=== PATIENT | female | born 1955 | race Caucasian/White ===

== ENCOUNTER 2016-08-07 10:04 | Emergency (ER) | payer BC ==
[~2016-08-07] VITALS: Ht 160 cm; Wt 62.3 kg
[~2016-08-07 10:04] MED LIST: ALLE60TA PO; ANUC25SU RECTAL; ASCO500C PO; CALC600T25 PO; CLIN1GEL TOPICAL; COLA100C3 PO; COQ1100C PO; FLUT1SPR5 EACH NARE; LACTCAP8 PO; LEVS0.124 SL; MULT1TAB96 PO; PERC5TAB12 PO; VITA2000 PO; XARE20TA PO; XELO500T PO; ZOFR4TAB PO; [UNRECOGNIZED DRUG - OTHER] PO; [UNRECOGNIZED DRUG - OTHER] PO; [UNRECOGNIZED DRUG - OTHER] PO
[2016-08-07 10:06] VITALS: BP 103/73; PULSE 116; RESP 16; TEMP 98.6; O2SAT 98
--- NOTE | 2016-08-07 10:15 | PD ---
HPI Chief Complaint: GI Complaint Time Seen by Provider: 10:15 Travel History International Travel<30 days: No Contact w/Intl Traveler<30days: No Traveled to known affect area: No History of Present Illness HPI 60-year-old female came to the emergency room with history of intractable diarrhea since past 3 days. Patient has history of colon cancer that has metastasized to her liver. She has had radiation treatment and currently on daily oral chemotherapy. Her oncologist is from [facility]. She slowly started to get diarrhea which is progressively worsening over past 3 days. She says she has been unable to stay out of the bathroom. She has taken Imodium which does not seem to be helping. There is no pain per se and she's not been vomiting. But she is unable to eat or drink anything since it comes right out. Stool is watery and nonbloody. In fact when I went to see her she was in the toilet for past 10-15 minutes before I got to see her because she was having a bowel movement. Her is here with her as well. Patient was tachycardic in triage. She looks tired and in distress. [facility] Past Medical History Narrative Medical List of her past medical, surgical, social and family history was reviewed from the nursing note. Hx Anticoagulant Therapy: Yes (XARELTO) Cancer: Yes (colon and liver) Cardiovascular Problems: No Chemotherapy: Yes (LAST THURSDAY) Diabetes: No Deep Vein Thrombosis: Yes (left leg on xarelto) Endocrine: No Genitourinary: No Hepatitis: No Hiatal Hernia: No Immune Disorder: No Musculoskeletal: No Neurologic: No Psychiatric: No Reproductive: No Respiratory: No Immunizations Current: Yes Radiation Therapy: Yes (targeted radiation) Thyroid Disease: No ?: Not Past Surgical History Abdominal Surgery: No AICD: No Cardiac Surgery: No Ear Surgery: No Endocrine Surgery: No Eye Surgery: No Genitourinary Surgery: No Gynecologic Surgery: No Joint Replacement: No Oral Surgery: No Pacemaker: No Other Surgery: Yes (cancerous polyp removed from anus) Social History Alcohol Use: No Tobacco Use: No Substance Use: No Allergies-Medications (Allergen,Severity, Reaction): Coded Allergies: No Known Allergies (Verified , 08/07/16) Comments No known drug allergies. Reported Meds & Prescriptions Reported Meds & Active Scripts Active Lomotil (Diphenoxylate-Atropine) 2.5-0.025 Mg Tab 1 Tab PO Q6H PRN Reported Pantoprazole (Pantoprazole Sodium) 40 Mg Tab 40 Mg PO DAILY l-Carnitine (Amino Acids) 1 Liq Liq 3,000 Mg PO BID Celexa (Citalopram Hydrobromide) 10 Mg Tab 10 Mg PO DAILY Ativan (Lorazepam) 1 Mg Tab 1 Mg PO DIRECTED PRN Percocet (Oxycodone-Acetaminophen) 5-325 mg Tab 1 Tab PO Q4-6H PRN Colace (Docusate Sodium) 100 Mg Cap 100 Mg PO BID PRN Coq10 (Coenzyme Q10 (Ubidecarenone)) 100 Mg Cap 100 Mg PO DAILY Zofran (Ondansetron HCl) 4 Mg Tab 4 Mg PO Q8HR PRN Anucort-Hc (Hydrocortisone Acetate (Rectal) 25 Mg Sup 1 Supp RECTAL BID PRN Clindagel Topical (Clindamycin Phosphate) 1% Gel 1 Applic TOPICAL DAILY Xarelto (Rivaroxaban) 20 Mg Tab 20 Mg PO DAILY Flonase Nasal [place] (Fluticasone Nasal [place]) 50 Mcg/Act [place] 50 Mcg EACH NARE DAILY Bertha Allergy (Fexofenadine HCl) 60 Mg Tab 60 Mg PO BID Multivitamin Women 50+ (Multiple Vitamins W/ Minerals) 1 Tab Tab 1 Tab PO DAILY Calcium (Calcium Carbonate) 600 Mg Tab 600 Mg PO DAILY Vitamin C (Ascorbic Acid) 500 Mg Cap 500 Mg PO DAILY Xeloda (Capecitabine) 500 Mg Tab 1,500 Mg PO DIRECTED Cytotoxic agent. Swallow whole with water 30 minutes after a meal. Do not cut or crush. [GI repair Powder] 5 Ml PO BID Vitamin D3 (Cholecalciferol) 2,000 Unit Cap 2,000 Units PO DAILY [ferrasorb] 1 Cap PO BID Probiotic (Lactobacillus Acidophilus) 1 Cap Cap 1 Cap PO DAILY [similase (ITI)] 2 Cap PO TIDAC Levsin-SL (Hyoscyamine Sulfate) 0.125 Mg Subl 0.125 Mg SL TID Narrative Medication List of her home medications reviewed from the nursing note. Review of Systems Except as stated in HPI: all other systems reviewed are Neg Physical Exam Narrative GENERAL: Awake, alert, moderate distress SKIN: Focused skin assessment warm/dry. HEAD: Atraumatic. Normocephalic. EYES: Pupils equal and round. No scleral icterus. No injection or drainage. ENT: No nasal bleeding or discharge. Dry mucous membrane. NECK: Trachea midline. No JVD. CARDIOVASCULAR: Regular rate and rhythm. No murmur appreciated. RESPIRATORY: No accessory muscle use. Clear to auscultation. Breath sounds equal bilaterally. GASTROINTESTINAL: Abdomen soft, non-tender, nondistended. Hepatic and splenic margins not palpable. MUSCULOSKELETAL: No obvious deformities. No clubbing. No cyanosis. No edema. NEUROLOGICAL: Awake and alert. No obvious cranial nerve deficits. Motor grossly within normal limits. Normal speech. PSYCHIATRIC: Appropriate mood and affect; insight and judgment normal. Data Data Last Documented VS Vital Signs Date Time Temp Pulse Resp B/P Pulse Ox O2 Delivery O2 Flow Rate FiO2 08/07/16 14:53 115 14 120/72 100 Room Air 08/07/16 10:06 98.6 Orders Complete Blood Count With Diff (08/07/16 10:48) Comprehensive Metabolic Panel (08/07/16 10:48) Urinalysis - C+S If Indicated (08/07/16 10:48) Iv Access Insert/Monitor (08/07/16 10:48) Ecg Monitoring (08/07/16 10:48) Oximetry (08/07/16 10:48) Sodium Chlor 0.9% 1000 Ml Inj (Ns 1000 M (08/07/16 10:48) Sodium Chloride 0.9% Flush (Ns Flush) (08/07/16 11:00) C Diff Toxin Pcr (08/07/16 10:48) Sodium Chlor 0.9% 1000 Ml Inj (Ns 1000 M (08/07/16 11:00) Urine Culture (08/07/16 11:00) Potassium Chlor 20 Meq Premix (Kcl 20 Me (08/07/16 12:00) Potassium Chloride (Kcl) (08/07/16 12:00) Diphenoxylate/Atropine Tab (Lomotil Tab) (08/07/16 12:30) Diphenoxylate/Atropine Tab (Lomotil Tab) (08/07/16 14:15) Labs Laboratory Tests Test 08/07/16 08/07/16 11:00 11:20 White Blood Count 2.8 TH/MM3 Red Blood Count 3.28 MIL/MM3 Hemoglobin 11.2 GM/DL Hematocrit 34.5 % Mean Corpuscular Volume 105.2 FL Mean Corpuscular Hemoglobin 34.1 PG Mean Corpuscular Hemoglobin 32.4 % Concent Red Cell Distribution Width 24.5 % Platelet Count 187 TH/MM3 Mean Platelet Volume 6.7 FL Neutrophils (%) (Auto) % Lymphocytes (%) (Auto) % Monocytes (%) (Auto) % Eosinophils (%) (Auto) % Basophils (%) (Auto) % Neutrophils # (Auto) TH/MM3 Lymphocytes # (Auto) TH/MM3 Monocytes # (Auto) TH/MM3 Eosinophils # (Auto) TH/MM3 Basophils # (Auto) TH/MM3 CBC Comment AUTO DIFF Differential Total Cells 100 Counted Neutrophils % (Manual) 54 % Lymphocytes % 26 % Monocytes % 17 % Eosinophils % 3 % Neutrophils # (Manual) 1.5 TH/MM3 Differential Comment FINAL DIFF MANUAL Platelet Estimate NORMAL Platelet Morphology Comment NORMAL Hematology Comments Urine Collection Type CLEAN CATCH Urine Color YELLOW Urine Turbidity CLEAR Urine pH 6.0 Urine Specific [place] 1.032 Urine Protein 30 mg/dL Urine Glucose (UA) NEG mg/dL Urine Ketones NEG mg/dL Urine Occult Blood NEG Urine Nitrite NEG Urine Bilirubin NEG Urine Leukocyte Esterase TRACE Urine RBC 0-3 /hpf Urine WBC 3-5 /hpf Urine Squamous Epithelial 0-5 /hpf Cells Urine Bacteria MOD /hpf Microscopic Urinalysis Comment CULTURE INDICATED Urine Collection Time 11:00 Sodium Level 143 MEQ/L Potassium Level 3.0 MEQ/L Chloride Level 110 MEQ/L Carbon Dioxide Level 21.0 MEQ/L Anion Gap 12 MEQ/L Blood Urea Nitrogen 22 MG/DL Creatinine 0.85 MG/DL Estimat Glomerular Filtration 68 ML/MIN Rate Random Glucose 104 MG/DL Calcium Level 8.7 MG/DL Total Bilirubin 0.9 MG/DL Aspartate Amino Transf 18 U/L (AST/SGOT) Alanine Aminotransferase 17 U/L (ALT/SGPT) Alkaline Phosphatase 87 U/L Total Protein 5.7 GM/DL Albumin 2.6 GM/DL Stool C. difficile Toxin (PCR) NEGATIVE Stl C. difficile Toxin PRESUMPTIVE Epiderm 027 NEGATIVE MDM Medical Decision Making Medical Screen Exam Complete: Yes Emergency Medical Condition: Yes Medical Record Reviewed: Yes Differential Diagnosis Intractable diarrhea, radiation colitis, C. difficile colitis, dehydration Narrative Course 12:15 PM awaiting for the C. difficile report to be resulted. Blood test results are back. Patient's white cell count is low but she is not neutropenic. I'm expecting that from her chemotherapy. Potassium was low and I have replaced it in the form of by mouth as well as IV. I will start her on Lomotil assist point since the C. difficile might take a while. Patient has already gone twice to the bathroom with bowel movement. 2:09 PM patient says that she had another bowel movement since the Lomotil but seems like the quantity is much less than before. Patient has received 2 L of IV fluid bolus and potassium replacement at this point. She is comfortable going home. I'll give her 1 more dose of Lomotil and a prescription to go home with. I have asked her to call her oncologist. She will go home with copies of her blood test results. Procedures EKG Prior to Arrival: No Diagnosis Primary Impression: Intractable diarrhea Additional Impressions: Rectal cancer Dehydration Referrals: Primary Care Physician 2 days Additional Instructions: Please return to the ER if the condition worsens or any other new concerns. Otherwise follow-up with your primary care and your oncologist as soon as possible. Take the medication as per the prescription direction. Drink lots of fluid. Med/Other Pt SpecificInfo: Prescription(s) given Scripts Diphenoxylate-Atropine (Lomotil)2.5-0.025 Mg Tab1 Tab PO Q6H PRN (DIARRHEA) #30 TAB Ref 0 Prov:Annel Chaudhary MD 08/07/16 Disposition: 01 DISCHARGE HOME Condition: Stable Annel Chaudhary MD Aug 07, 2016 10:15
[2016-08-07] MEDS ORDERED: [UNRECOGNIZED DRUG - CODE] PO (10:43)
[2016-08-07] MEDS ORDERED: LORA-474 PO (10:43)
[2016-08-07] MEDS ORDERED: CELE10TA PO (10:43)
[2016-08-07] MEDS ORDERED: PANT40TA3 PO (10:43)
[2016-08-07] MEDS ORDERED: LACTCAP8 PO (10:43)
[2016-08-07] MEDS ORDERED: SODIUM CHLOR 0.9% 1000 ML INJ 1,000 ML IV SCH (10:48)
[2016-08-07] MEDS ORDERED: SODIUM CHLORIDE 0.9% FLUSH 10 ML FLUSH IV FLUSH PRN (11:00)
[2016-08-07] MEDS ORDERED: SODIUM CHLOR 0.9% 1000 ML INJ 1,000 ML IV ONE (11:00)
[2016-08-07 11:02] VITALS: O2SAT 100
[2016-08-07 11:07] LABS: BLOOD, URINE NEG (NEG); GLUCOSE,URINE NEG (NEG); KETONE, URINE NEG (NEG); NITRITE,URINE NEG (NEG)
[2016-08-07 11:09] LABS: HEMATOCRIT 34.5 % (35.0-46.0); MEAN CELL VOLUME 105.2 FL (80.0-100.0); MEAN CORPUSCULAR HEMOGLOBIN 34.1 PG (27.0-34.0); MEAN CORPUSCULAR HGB CONC 32.4 % (32.0-36.0); PLATELET COUNT 187 TH/MM3 (150-450); RED BLOOD COUNT 3.28 MIL/MM3 (4.00-5.30); RED CELL DISTRIBUTION WIDTH 24.5 % (11.6-17.2); WHITE BLOOD COUNT 2.8 TH/MM3 (4.0-11.0)
[2016-08-07 11:18] LABS: BACTERIA, URINE MOD /hpf; METHOD OF COLLECTION CLEAN CATCH; RBC, URINE 0-3 /hpf (0-3); SQUAMOUS EPITHELIAL CELL URINE 0-5 /hpf (0-5); URINE COLOR YELLOW (YELLW/STRAW)
[2016-08-07 11:19] LABS: CHLORIDE 110 MEQ/L (98-107); COMMENT (UR) CULTURE INDICATED; CULTURE IF INDICATED CULTURE INDICATED; SODIUM (NA) 143 MEQ/L (136-145)
[2016-08-07 11:22] LABS: ANION GAP 12 MEQ/L (5-15)
[2016-08-07 11:23] LABS: BLOOD UREA NITROGEN 22 MG/DL (7-18)
[2016-08-07 11:24] LABS: HEMATOLOGY STUDY COMMENT ND; HEMO FLAGS AUTO DIFF
[2016-08-07 11:26] LABS: ALT (GPT) 17 U/L (10-53); AST (GOT) 18 U/L (15-37); GLOMERULAR FILTRATION RATE 68 ML/MIN (>89)
[2016-08-07 11:27] LABS: TOTAL BILIRUBIN ADULT 0.9 MG/DL (0.2-1.0)
[2016-08-07 11:28] LABS: ALKALINE PHOSPHATASE 87 U/L (45-117)
[2016-08-07 11:44] LABS: EOSINOPHILS 3 % (0-4); NEUTROPHIL # MANUAL DIFF 1.5 TH/MM3 (1.8-7.7); POLYS (SEG NEUTROPHILS) 54 % (16-70); WBC DIFF SAMPLE 100
[2016-08-07 11:45] LABS: PLATELET ESTIMATE SMEAR NORMAL (NORMAL); PLATELET MORPHOLOGY NORMAL (NORMAL); SCAN/DIFF FINAL DIFF MANUAL
[2016-08-07] MEDS ORDERED: POTASSIUM CHLORIDE 20 MEQ CONTROLLED RELEASE TAB PO ONE (12:00)
[2016-08-07] MEDS ORDERED: POTASSIUM CHLOR 20 MEQ PREMIX 100 ML IV ONE (12:00)
[2016-08-07] MEDS ORDERED: DIPHENOXYLATE/ATROPINE 2.5 MG/0.025 MG TAB PO ONE ×2 (12:30→14:15)
[2016-08-07 12:53] VITALS: BP 103/70; PULSE 109; RESP 14; O2SAT 100
[2016-08-07] MEDS ORDERED: LOMO2.5T PO (14:12)
[2016-08-07 14:53] VITALS: BP 120/72; PULSE 115; RESP 14; O2SAT 100
[2016-08-07 15:07] LABS: C. DIFF EPI 027 PRESUMPTIVE NEGATIVE (NEGATIVE); C. DIFF TOXIN PCR NEGATIVE (NEGATIVE)
== END 2016-08-07 15:15 | disposition home or self-care (01) ==
LOC: PHED 10:04
DX: R19.7 Diarrhea, unspecified (principal); C20 Malignant neoplasm of rectum; C78.7 Secondary malignant neoplasm of liver and intrahepatic bile duct; E86.0 Dehydration; R00.0 Tachycardia, unspecified; Z79.01 Long term (current) use of anticoagulants; Z85.038 Personal history of other malignant neoplasm of large intestine; Z86.718 Personal history of other venous thrombosis and embolism
CPT/HCPCS: 80053; 81001; 85007; 85027; 87086; 87493; 96361; 96365; 96366; 99284; J3480; J7030

== ENCOUNTER 2017-03-17 11:15 | Observation (INO) | payer BC ==
[~2017-03-17] VITALS: Ht 154.9 cm; Wt 73.7 kg
[2017-03-17] VITALS (7 sets, daily range): BP systolic 100–121; BP diastolic 66–81; PULSE 75–96; RESP 15–20; TEMP 96.6–98.1; O2SAT 95–100
[~2017-03-17 11:15] MED LIST changes: -CALC600T25 PO; +CALC600T5 PO; +CELE10TA PO; +LOMO2.5T PO; +LORA-474 PO; +PANT40TA3 PO; +[UNRECOGNIZED DRUG - CODE] PO
[2017-03-17] MEDS ORDERED: SODIUM CHLOR 0.9% 1000 ML INJ 1,000 ML IV SCH (11:42)
[2017-03-17] MEDS ORDERED: SODIUM CHLORIDE 0.9% FLUSH 10 ML FLUSH IV FLUSH PRN ×4 (11:45→20:15)
--- NOTE | 2017-03-17 11:50 | PD ---
HPI Chief Complaint: Bleeding Time Seen by Provider: 11:30 Travel History International Travel<30 days: No Contact w/Intl Traveler<30days: No Traveled to known affect area: No History of Present Illness HPI Patient is a 61-year-old female with history of liver and colon cancer as well as rectal cancer, presents to emergency room for lab work. Patient is currently being seen by Dr. Clayton in [place] at the cancer center. She is currently been receiving chemotherapy, reports that her last chemotherapy treatment was on . Patient reports that she has had radiation as well as chemotherapy, reports that she has residual tumors in her liver as well as her rectum. She reports that she is currently being seen by GI and reports that every day, she does have blood in her stools and this is secondary to her rectal cancer. Patient reports that she was concerned as she had 2 bowel movements this morning which had a mix of dark and bright red blood. Patient reports that during her bowel movements, she did have an episode of epistasis. Reports that she also had an episode of epistasis last night which lasted for about an hour. Patient reports that she currently is on Xarelto as she has history of DVT, patient concerned for her hemoglobin level as well as her platelet level. Patient reports that with her chemotherapy and radiation, her platelet counts have been low, last week or platelet counts was 87. Patient reports no abdominal pain, no nausea or vomiting, no weakness or dizziness. She was told to come to the emergency room for lab work and to check on her hemoglobin specifically. Patient with no epistasis at this time, reports that overall, she does feel well. Patient's pipe fitter supervisor maintenance is in [place] Dr. Precious Orosco diagnosed her cancer initially [facility] Past Medical History Hx Anticoagulant Therapy: Yes (XARELTO) Depression: Yes Cancer: Yes (colon and liver) Cardiovascular Problems: No Chemotherapy: Yes (LAST THURSDAY) Diabetes: No Diminished Hearing: No Deep Vein Thrombosis: Yes (left leg on xarelto) Endocrine: No Gastrointestinal Disorders: Yes (IBS, HEMROIDS) GERD: Yes Genitourinary: No Hepatitis: No Hiatal Hernia: No Immune Disorder: No Musculoskeletal: No Neurologic: No Psychiatric: No Reproductive: No Respiratory: No Immunizations Current: Yes Radiation Therapy: Yes (targeted radiation TO LIVER) Thyroid Disease: No ?: Not Past Surgical History Abdominal Surgery: No AICD: No Cardiac Surgery: No Ear Surgery: No Endocrine Surgery: No Eye Surgery: No Genitourinary Surgery: No Gynecologic Surgery: No Joint Replacement: No Oral Surgery: No Pacemaker: No Other Surgery: Yes (cancerous polyp removed from anus) Social History Alcohol Use: No Tobacco Use: No Substance Use: No Allergies-Medications (Allergen,Severity, Reaction): Coded Allergies: No Known Allergies (Verified Adverse Reaction, Unknown, 03/17/17) Reported Meds & Prescriptions Reported Meds & Active Scripts Active Lomotil (Diphenoxylate-Atropine) 2.5-0.025 Mg Tab 1 Tab PO Q6H PRN Reported Nasacort Allergy 24Hr Nasal [place] (Triamcinolone Acetonide Nasal [place]) 55 Mcg Spr 55 Mcg EACH NARE DAILY Co Q 10 (Coenzyme Q10 (Ubidecarenone)) 100 Mg-5 Unit Cap 100 Mg PO DAILY Bertha Allergy (Fexofenadine HCl) 60 Mg Tab 60 Mg PO DAILY Xarelto (Rivaroxaban) 10 Mg Tab 10 Mg PO DAILY Pantoprazole (Pantoprazole Sodium) 40 Mg Tab 40 Mg PO DAILY Celexa (Citalopram Hydrobromide) 10 Mg Tab 10 Mg PO DAILY Percocet (Oxycodone-Acetaminophen) 5-325 mg Tab 1 Tab PO Q4-6H PRN Zofran (Ondansetron HCl) 4 Mg Tab 4 Mg PO Q8HR PRN Anucort-Hc (Hydrocortisone Acetate (Rectal) 25 Mg Sup 1 Supp RECTAL BID PRN Calcium (Calcium Carbonate) 600 Mg Tab 600 Mg PO DAILY Vitamin D3 (Cholecalciferol) 2,000 Unit Cap 2,000 Units PO DAILY Probiotic (Lactobacillus Acidophilus) 1 Cap Cap 1 Cap PO DAILY Levsin-SL (Hyoscyamine Sulfate) 0.125 Mg Subl 0.125 Mg SL TID Review of Systems General / Constitutional: No: Fever Eyes: No: Visual changes HENT: Positive: Other (epistasis), No: Headaches Cardiovascular: No: Chest Pain or Discomfort Respiratory: No: Shortness of Breath Gastrointestinal: Positive: Hematochezia, No: Nausea, Vomiting, Diarrhea, Abdominal Pain, Hematemesis, Constipation Genitourinary: No: Urgency, Frequency, Dysuria Musculoskeletal: No: Pain Skin: No Rash Neurologic: No: Weakness Psychiatric: No: Depression Endocrine: No: Polydipsia Hematologic/Lymphatic: No: Easy Bruising Physical Exam Narrative GENERAL: No acute distress, nontoxic SKIN: Focused skin assessment warm/dry. HEAD: Atraumatic. Normocephalic. EYES: Pupils equal and round. No scleral icterus. No injection or drainage. ENT: No nasal bleeding or discharge. Mucous membranes pink and moist. NECK: Trachea midline. No JVD. CARDIOVASCULAR: Regular rate and rhythm. No murmur appreciated. RESPIRATORY: No accessory muscle use. Clear to auscultation. Breath sounds equal bilaterally. GASTROINTESTINAL: Abdomen soft, non-tender, nondistended. Hepatic and splenic margins not palpable. MUSCULOSKELETAL: No obvious deformities. No clubbing. No cyanosis. No edema. STOOL: HEME POSITIVE, melena with bright red mucous stools NEUROLOGICAL: Awake and alert. No obvious cranial nerve deficits. Motor grossly within normal limits. Normal speech. PSYCHIATRIC: Appropriate mood and affect; insight and judgment normal. Data Data Last Documented VS Vital Signs Date Time Temp Pulse Resp B/P (MAP) Pulse Ox O2 Delivery O2 Flow Rate FiO2 03/17/17 11:23 97.9 96 18 121/69 (86) 100 Orders Orders Basic Metabolic Panel (Bmp) (03/17/17 11:42) Complete Blood Count With Diff (03/17/17 11:42) Prothrombin Time / Inr (Pt) (03/17/17 11:42) Act Partial Throm Time (Ptt) (03/17/17 11:42) Iv Access Insert/Monitor (03/17/17 11:42) Ecg Monitoring (03/17/17 11:42) Sodium Chlor 0.9% 1000 Ml Inj (Ns 1000 M (03/17/17 11:42) Sodium Chloride 0.9% Flush (Ns Flush) (03/17/17 11:45) Type And Screen (03/17/17 13:09) Labs Laboratory Tests Test 03/17/17 11:55 White Blood Count 3.2 TH/MM3 Red Blood Count 3.77 MIL/MM3 Hemoglobin 12.3 GM/DL Hematocrit 37.2 % Mean Corpuscular Volume 98.7 FL Mean Corpuscular Hemoglobin 32.6 PG Mean Corpuscular Hemoglobin Concent 33.0 % Red Cell Distribution Width 16.5 % Platelet Count 63 TH/MM3 Mean Platelet Volume 8.3 FL Neutrophils (%) (Auto) 86.9 % Lymphocytes (%) (Auto) 10.0 % Monocytes (%) (Auto) 1.0 % Eosinophils (%) (Auto) 1.5 % Basophils (%) (Auto) 0.6 % Neutrophils # (Auto) 2.9 TH/MM3 Lymphocytes # (Auto) 0.3 TH/MM3 Monocytes # (Auto) 0.0 TH/MM3 Eosinophils # (Auto) 0.0 TH/MM3 Basophils # (Auto) 0.0 TH/MM3 CBC Comment AUTO DIFF Differential Comment AUTO DIFF CONFIRMED Prothrombin Time 11.6 SEC Prothromb Time International Ratio 1.0 RATIO Activated Partial Thromboplast Time 25.2 SEC Blood Urea Nitrogen 19 MG/DL Creatinine 0.74 MG/DL Random Glucose 133 MG/DL Calcium Level 9.2 MG/DL Sodium Level 137 MEQ/L Potassium Level 3.5 MEQ/L Chloride Level 105 MEQ/L Carbon Dioxide Level 20.6 MEQ/L Anion Gap 11 MEQ/L Estimat Glomerular Filtration Rate 79 ML/MIN MDM Medical Decision Making Medical Screen Exam Complete: Yes Emergency Medical Condition: Yes Medical Record Reviewed: Yes Interpretation(s) Vital Signs Date Time Temp Pulse Resp B/P (MAP) Pulse Ox O2 Delivery O2 Flow Rate FiO2 03/17/17 11:23 97.9 96 18 121/69 (86) 100 Differential Diagnosis Anemia, thrombocytopenia, electrolyte abnormality Narrative Course Patient is a 61-year-old female currently presents to emergency room for evaluation of possible anemia. Patient is unfortunate as she has history of liver, colon and rectal cancer, she is currently being treated at the cancer center in [place] by Dr. Clayton and did receive chemotherapy last . Patient here for hemoglobin and platelet check as she had 2 episodes of epistasis as well as an episode of bloody stools this morning. Patient with no abdominal pain, no weakness, no chest pain or shortness of breath, no other symptoms at this time. During the course of the patients emergency department visit, the patients history, examination, and differential diagnosis were reviewed with the patient. The patient was placed on a monitoring analyst with oximetry and frequent blood pressure monitoring. The patient had 20-gauge IV access obtained and blood work sent for analysis. The patient was initially provided IV fluids The patients laboratory studies were reviewed and remarkable for CBC & BMP Diagram 03/17/17 11:55 Calcium Level 9.2 Patient reevaluated, patient reports that she had another bowel movement while in the emergency room, reports that she had melanotic stool. Given her symptoms, plan to observe her for GI bleed workup and serial H&H's. Plan to type and screen as her platelets are 63 and hgb 12.3 Patient with 4th episode of bloody stools today (she had 2 episodes at home, 2 episodes in the emergency room), patient will require observation to the hospital for serial H&H's Case reviewed with Dr. Ayala who accepts pt to service Diagnosis Primary Impression: GI bleed Qualified Codes: K92.1 - Melena Additional Impression: Thrombocytopenia Admitting Information Admitting Physician Requests: Observation Aracelis Ramon DO Mar 17, 2017 11:50
[2017-03-17 12:02] LABS: AUTOMATED NEUTROPHIL # 2.9 TH/MM3 (1.8-7.7); BASOPHIL % 0.6 % (0.0-2.0); EOSINOPHIL % 1.5 % (0.0-4.0); HEMATOCRIT 37.2 % (35.0-46.0); LYMPHOCYTE # 0.3 TH/MM3 (1.0-4.8); MEAN CELL VOLUME 98.7 FL (80.0-100.0); MEAN CORPUSCULAR HEMOGLOBIN 32.6 PG (27.0-34.0); NEUT % 86.9 % (16.0-70.0); PLATELET COUNT 63 TH/MM3 (150-450); RED BLOOD COUNT 3.77 MIL/MM3 (4.00-5.30); RED CELL DISTRIBUTION WIDTH 16.5 % (11.6-17.2); WHITE BLOOD COUNT 3.2 TH/MM3 (4.0-11.0)
[2017-03-17 12:04] LABS: HEMO FLAGS AUTO DIFF
[2017-03-17] MEDS ORDERED: ALLE60TA PO (12:09)
[2017-03-17] MEDS ORDERED: TRIA1SPR5 EACH NARE (12:09)
[2017-03-17] MEDS ORDERED: XARE10TA PO (12:09)
[2017-03-17] MEDS ORDERED: CO Q100C9 PO (12:09)
[2017-03-17 12:12] LABS: POTASSIUM 3.5 MEQ/L (3.5-5.1)
[2017-03-17 12:15] LABS: BICARBONATE 20.6 MEQ/L (21.0-32.0)
[2017-03-17 12:17] LABS: APTT (PATIENT) 25.2 SEC (24.3-30.1); PROTHROMBIN TIME - PATIENT 11.6 SEC (9.8-11.6)
[2017-03-17 12:39] LABS: SCAN/DIFF AUTO DIFF CONFIRMED
[2017-03-17] MEDS ORDERED: NALOXONE HCL 0.4 MG/ML AMP IV PUSH PRN (13:45)
[2017-03-17] MEDS ORDERED: LACTULOSE SYRUP 20 GM/30 ML CUP PO PRN (13:45)
[2017-03-17] MEDS ORDERED: SENNOSIDES 8.6 MG TAB PO PRN (13:45)
[2017-03-17] MEDS ORDERED: BISACODYL 10 MG SUPP RECTAL PRN (13:45)
[2017-03-17] MEDS ORDERED: MAGNESIUM HYDROXIDE SUSP 30 ML CUP PO PRN (13:45)
[2017-03-17] MEDS ORDERED: oxyCODONE/ACETAMINOPHEN 5 MG/325 MG TAB PO PRN (14:00)
[2017-03-17] MEDS ORDERED: DIPHENOXYLATE/ATROPINE 2.5 MG/0.025 MG TAB PO PRN (14:00)
[2017-03-17] MEDS ORDERED: HYOSCYAMINE 0.125 MG TAB PO SCH (18:00)
[2017-03-17] MEDS ORDERED: HYDROCORTISONE/PRAMOXINE RECTAL FOAM 10 GM CAN RECTAL PRN (18:15)
[2017-03-17] MEDS ORDERED: OXYMETAZOLINE HCL 0.05% 15 ML NASAL SPRAY NASAL ONE (18:15)
[2017-03-17] MEDS: HYOSCYAMINE 0.125 MG TAB PO SCH (20:30)
--- NOTE | 2017-03-17 20:39 | MB ---
cc: BEVERLY RYDER MD DATE OF CONSULTATION 03/17/17 [address] Ayala REASON FOR REFERRAL Rectal bleeding. HISTORY OF PRESENT ILLNESS Thank you for the consultation. A 61-year-old lady who has known history of colon cancer with metastasis to the liver, stage IV. The patient had multiple therapies including radiation and focal radiation and multiple chemo that was switched from different types because of lack of response. The patient was doing okay. She is being followed by cancer specialty group in [place]. She was doing okay when she came because she had some rectal bleeding. She always has rectal bleeding since the radiation, but she felt that this was a little bit more. Apparently, she has history of DVT and she is on plus thinner, Xarelto. The patient had nose bleed also which seems to be stopping. She has low platelets. She denied any nausea, vomiting, abdominal pain at this time. PAST MEDICAL HISTORY 1. Colon cancer with metastases as above. 2. Depression. 3. Colonoscopy about eight months ago with polyp removed that had some cancer tissue with it. SOCIAL HISTORY Negative for tobacco, drug or alcohol. ALLERGIES None MEDICATIONS Reviewed in the chart. REVIEW OF SYSTEMS All 12-point negative except HPI. PHYSICAL EXAMINATION GENERAL: Alert, oriented in no acute distress. No fever at this time. HEENT: Pupils are round, reactive to light. NECK: Supple. The patient IS wearing a mask. CHEST: Clear to auscultation and percussion. CARDIAC: Regular rate and rhythm. No murmur or gallop. ABDOMEN: Soft, nondistended, nontender at this time. EXTREMITIES: No edema, clubbing or cyanosis. RECTAL: She had a rectal exam by primary team which shows some melena with bright red mucosa of the rectum. NEUROLOGIC: Alert, oriented. No focal abnormalities. PSYCHIATRIC: Psychologically appropriate. LABORATORY DATA White count 3.2, hemoglobin 12.3, platelets 63, INR 1.0, BUN 19, creatinine 0.74. ASSESSMENT/PLAN This is a pleasant 61-year-old unfortunate lady who has stage IV colon cancer being treated now with chemotherapy. She had multiple targeted therapy with radiation. Most likely, the bleeding is related to radiation. Her hemoglobin is stable. She had epistaxis with nosebleed most likely related to anticoagulation. Currently, she has no bleeding from her nose or from her rectum. The patient is not very interested in doing a colonoscopy, since she had one-to-one last month and I do not advocate that since she is not actively bleeding and her hemoglobin is stable. I would recommend advancing diet and monitor hemoglobin. If she starts actively bleeding, then we will do a colonoscopy for bleeding control. Otherwise, I do not think a colonoscopy will add any information to her existing information, especially that she had a colonoscopy last year. The patient agreed with that. We will advance her diet and see how she does. Repeat hemoglobin in the morning. Thank you for the consultation. MD GAMA Vazquez/ /8:17 PM /8:28 PM
[2017-03-17] MEDS ORDERED: SODIUM CHLORIDE 0.9% FLUSH 10 ML FLUSH IV FLUSH SCH ×2 (21:00)
--- NOTE | 2017-03-17 23:57 | MB ---
cc: DENYS ROCK MICHELLE S. MD DODD,JORDI Hernandez M.D. DATE OF CONSULTATION: 03/17/2017 DATE OF : [address] Ayala CHIEF COMPLAINT: Dr. Ayala requested consultation for Mrs. Reed regarding bleeding associated with rectal cancer with competing needs of being on anticoagulant therapy. HISTORY OF PRESENT ILLNESS Mrs. Reed is a 61-year-old woman with history of metastatic colorectal cancer. She has a known rectal lesion and metastatic disease to liver. She has previously a patient of Dr. Jordi Ding. She elected to go to [facility] for treatment. She describes receiving multiple treatments including radiation to the rectal lesion. She received chemo-embolization to the liver. It is not certain if this was with chemotherapy or Yttrium. She describes that her liver lesions went away. She has had recent recurrence. She had a colonoscopy that showed residual disease. She has always had little bleeding in the rectum intermittently. She noted the bleeding to have worsened over the last several days. The evening prior to her presentation she had severe epistaxis on both nose. She had rectal bleeding. With the above bleeding, she presented to the emergency room for evaluation. She developed venous thromboembolic events and was placed on anticoagulant therapy. She describes being on low-molecular weight heparin and switched to a new oral anticoagulant. She has been on a dose of Xarelto of 10 mg as secondary prophylaxis. She denies any complications with the Xarelto. Her Xarelto would often be placed on hold prior to procedures. She had recent colonoscopic evaluation and her Xarelto was held. A biopsy was done but she denies any significant bleeding associated with that. She was hospitalized because of the lower GI bleeding and epistaxis. She was found to have a platelet count of 63,000. Her white count is decreased to 3.2. She told the ER physician that she received chemotherapy just last week on . She was admitted and serial H&H is being performed. Hematology/Oncology is consulted regarding optimal anticoagulant therapy. The rest of her review of systems is negative. She describes eating well. She denies any abdominal pain. She denies any leg swelling. No headaches. No fevers, chills, night sweats. She is tolerating her chemotherapy with cetuximab. PAST MEDICAL HISTORY: 1. Metastatic colorectal cancer. 2. History of venous thromboembolic event / left lower extremity DVT. 3. Hemorrhoids. 4. Irritable bowel syndrome. 5. Depression. PAST SURGICAL HISTORY 1. Colonoscopy. 2. Polyp removal. 3. Port placement. 4. Chemo-embolization of liver lesion. SOCIAL HISTORY Denies any tobacco, alcohol or illicit drug use. She is , lives with her . They travel up to [place] for her re-excision at [facility]. FAMILY HISTORY: Noncontributory. PHYSICAL EXAMINATION VITAL SIGNS: Temperature 96.7, heart rate 76, respiratory rate 16, blood pressure 109/73, saturation 100%. GENERAL: Mrs. Reed is a well-developed, well-nourished woman who looks younger than stated age. HEENT: Her pupils are round, reactive to light and accommodation. She has some mild nasal congestion. Neck: Supple. Lungs: Lungs are clear. Cardiovascular: Exam reveals normal rate and rhythm. Abdomen: Benign. Liver is not enlarged, spleen tip is palpable. Extremities: Lower extremity with no edema, no asymmetry. Good pulses. LABORATORY DATA Significant for a BUN of 19, creatinine 0.74. CBC is significant for white blood cell count of 3.2, hemoglobin of 12.3, platelet count of 63,000. ASSESSMENT/PLAN Mrs. Reed is a 61-year-old woman with metastatic colorectal cancer. She has had local therapy and chemo-embolization to liver. She is currently on cetuximab. She has progressed on multiple lines of chemotherapy. Most recent treatment with cetuximab. We discussed the risk and benefit of cetuximab. Cetuximab is rather the standard of care. We discussed that she will be able to get this treatment with Dr. Ding locally. Treatment is quite cumbersome since the treatment is every two weeks, especially she has to drive to [place] for the treatment. We discussed the bleeding event. Not certain of the nature of the bleed versus hemorrhoids, a rectal fissure or progression of her metastatic disease. In light of her bleeding and thrombocytopenia, I recommend stopping her anticoagulant therapy. Her venous thromboembolic event has been over a year. She has no acute clot. We discussed continued evaluation as to the etiology of her bleed. We will monitor her hemoglobin which I anticipate is probably lower. She describes no bleeding at present, seems to be intermittent. We do not typically see significant cytopenias associated with cetuximab. The thrombocytopenia may be due to the bleeding. She did describe bleeding with severe epistaxis prior to her presentation. Platelets could have been consumed. She also describes that her platelet count at baseline is low because of the liver changes post chemo-embolization and mildly enlarged spleen. No platelet transfusion is needed at present. The case was discussed with the primary team. We will defer from her anticoagulant therapy. I am concerned that the effect of Xarelto is still present given its half life. She has fortunately a good renal function. We anticipate the effect of Xarelto to dissipate after two days time. Her baseline PT/PTT is normal, however, that does not speak to the efficacy of Xarelto in inhibiting coagulation factor activity. ProctoFoam is offered as a palliative treatment. Her diet could be advanced unless procedure is pending by gastroenterology. She needs to continue her bowel regimen to minimize straining and minimize rectal bleeding. Afrin is offered for epistaxis. We will monitor closely for these bleeding events and support her, especially since Xarelto is still on board. Her questions were answered to her satisfaction. Denys Rock MD RAD/JJ /10:54 PM /11:27 PM MEG
[2017-03-18] VITALS: BP 105/68; PULSE 79; RESP 20; TEMP 97.7; O2SAT 97
[2017-03-18 04:00] VITALS: BP 128/69; PULSE 73; RESP 18; TEMP 96.3; O2SAT 98
[2017-03-18 06:51] LABS: AUTOMATED NEUTROPHIL # 2.3 TH/MM3 (1.8-7.7); BASOPHIL % 0.2 % (0.0-2.0); EOSINOPHIL # 0.1 TH/MM3 (0-0.4); EOSINOPHIL % 4.4 % (0.0-4.0); HEMATOCRIT 35.4 % (35.0-46.0); LYMPH % 17.8 % (9.0-44.0); LYMPHOCYTE # 0.5 TH/MM3 (1.0-4.8); MEAN CELL VOLUME 98.7 FL (80.0-100.0); MEAN CORPUSCULAR HEMOGLOBIN 32.3 PG (27.0-34.0); MEAN CORPUSCULAR HGB CONC 32.7 % (32.0-36.0); MONO % 2.5 % (0.0-8.0); NEUT % 75.1 % (16.0-70.0); PLATELET COUNT 64 TH/MM3 (150-450); RED BLOOD COUNT 3.59 MIL/MM3 (4.00-5.30); RED CELL DISTRIBUTION WIDTH 16.1 % (11.6-17.2)
[2017-03-18 06:54] LABS: HEMO FLAGS AUTO DIFF
--- NOTE | 2017-03-18 06:57 | HHI.GIFU ---
Subjective Remarks Patient laying in bed, seems to be comfortable, she denies any large amount of nosebleed just small amounts according to her, and she stated that she had some dark stool mixed with small amount of blood which is normal for her as far as small amount of the blood the dark stool most likely ingested blood from the nosebleed, she is not having any abdominal pain at this time Objective Vitals I&O Vital Signs Date Time Temp Pulse Resp B/P (MAP) Pulse Ox O2 Delivery O2 Flow Rate FiO2 03/18/17 04:00 96.3 73 18 128/69 (88) 98 03/18/17 00:00 97.7 79 20 105/68 (80) 97 03/17/17 20:00 96.9 84 20 100/66 (77) 100 03/17/17 16:00 96.7 76 16 109/73 (85) 100 03/17/17 15:00 96.6 77 16 116/81 (93) 95 03/17/17 14:56 96.6 77 16 116/81 (93) 95 03/17/17 14:35 03/17/17 13:55 98.1 75 15 116/77 (90) 98 Room Air 03/17/17 12:40 78 17 106/74 (85) 98 Room Air 03/17/17 11:23 97.9 96 18 121/69 (86) 100 I/O 03/17/17 03/17/17 03/17/17 03/18/17 03/18/17 03/18/17 07:00 15:00 23:00 07:00 15:00 23:00 Intake Total 1000 ml 630 ml 60 ml Output Total 0 ml Balance 1000 ml 630 ml 60 ml Intake Oral 630 ml 60 ml IV Total 1000 ml Output Stool Total 0 ml # Voids 3 1 # Bowel Movements 0 1 Laboratory Laboratory Tests Test 03/17/17 11:55 03/18/17 06:30 White Blood Count 3.2 3.0 Red Blood Count 3.77 3.59 Hemoglobin 12.3 11.6 Hematocrit 37.2 35.4 Mean Corpuscular Volume 98.7 98.7 Mean Corpuscular Hemoglobin 32.6 32.3 Mean Corpuscular Hemoglobin Concent 33.0 32.7 Red Cell Distribution Width 16.5 16.1 Platelet Count 63 64 Mean Platelet Volume 8.3 8.3 Neutrophils (%) (Auto) 86.9 75.1 Lymphocytes (%) (Auto) 10.0 17.8 Monocytes (%) (Auto) 1.0 2.5 Eosinophils (%) (Auto) 1.5 4.4 Basophils (%) (Auto) 0.6 0.2 Neutrophils # (Auto) 2.9 2.3 Lymphocytes # (Auto) 0.3 0.5 Monocytes # (Auto) 0.0 0.1 Eosinophils # (Auto) 0.0 0.1 Basophils # (Auto) 0.0 0.0 CBC Comment AUTO DIFF AUTO DIFF Differential Comment AUTO DIFF CONFIRMED Prothrombin Time 11.6 Prothromb Time International Ratio 1.0 Activated Partial Thromboplast Time 25.2 Blood Urea Nitrogen 19 Creatinine 0.74 Random Glucose 133 Calcium Level 9.2 Sodium Level 137 Potassium Level 3.5 Chloride Level 105 Carbon Dioxide Level 20.6 Anion Gap 11 Estimat Glomerular Filtration Rate 79 Physical Exam HEENT: Pupils round and reactive to light; normocephalic; atraumatic; no jaundice. Throat is clear. NECK: Neck is supple, no JVD, no lymphadenopathy. CHEST: Chest is clear to auscultation and percussion. CARDIAC: Regular rate and rhythm with no murmur gallop or rubs. ABDOMEN: Soft, nondistended, nontender; no hepatosplenomegaly; bowel sounds are present in all four quadrants. EXTREMITIES: No clubbing, cyanosis, or edema. SKIN: Normal; no rash; no jaundice. GRAIN DISTRIBUTOR: No focal deficits; alert and oriented times three. Assessment and Plan Plan Patient is 61-year-old lady with rectal cancer status post radiation and chemotherapy with targeted therapy had rectal bleeding patient feel that this is normal for her I offered her doing a colonoscopy or flexible sigmoidoscopy to evaluate if there is more active but she doesn't think that this is needed since this is her baseline also the black stool most likely related to ingested blood from her nose bleed which said it was quite large amount yesterday apparently patient feel well and at baseline I would advise patient to follow up with her oncologist and GI team that she establish with We will start feeding her today and see how she tolerated that If hemoglobin stable patient may be discharged from GI point Thank you for the consultation Dejeay Bell MD Mar 18, 2017 06:57
[2017-03-18 07:04] LABS: CHLORIDE 106 MEQ/L (98-107); POTASSIUM 3.9 MEQ/L (3.5-5.1); SODIUM (NA) 140 MEQ/L (136-145)
[2017-03-18 07:12] LABS: ANION GAP 9 MEQ/L (5-15); BICARBONATE 25.3 MEQ/L (21.0-32.0); BLOOD UREA NITROGEN 14 MG/DL (7-18)
[2017-03-18 07:15] LABS: ALT (GPT) 78 U/L (10-53); AST (GOT) 60 U/L (15-37)
[2017-03-18 07:16] LABS: GLOMERULAR FILTRATION RATE 114 ML/MIN (>89)
[2017-03-18 07:18] LABS: ALKALINE PHOSPHATASE 189 U/L (45-117)
[2017-03-18 07:40] LABS: PLATELET ESTIMATE SMEAR LOW (NORMAL); PLATELET MORPHOLOGY NORMAL (NORMAL)
[2017-03-18 07:41] LABS: SCAN/DIFF AUTO DIFF CONFIRMED
[2017-03-18 08:00] VITALS: BP 110/64; PULSE 73; RESP 16; TEMP 98; O2SAT 98
[2017-03-18] MEDS: HYOSCYAMINE 0.125 MG TAB PO SCH (08:26)
[2017-03-18] MEDS ORDERED: LACTOBACILLUS ACIDOPHILUS TAB PO SCH (09:00)
[2017-03-18] MEDS ORDERED: TRIAMCINOLONE ACETONIDE 55 MCG/ACT NASAL SPRAY 16.5 GM BTL EACH NARE SCH (09:00)
[2017-03-18] MEDS ORDERED: CALCIUM CARBONATE 1.25 GM (CA 500 MG) TAB PO SCH (09:00)
[2017-03-18] MEDS ORDERED: LORATADINE 10 MG TAB PO SCH (09:00)
[2017-03-18] MEDS ORDERED: PANTOPRAZOLE SOD 40 MG DELAYED RELEASE TAB PO SCH (09:00)
[2017-03-18] MEDS ORDERED: CITALOPRAM HYDROBROMIDE 20 MG TAB PO SCH (09:00)
--- NOTE | 2017-03-18 09:18 | HHI.HP ---
[facility] Service [facility] Primary Care Physician Antonieta Wong MD Admission Diagnosis GI BLEED Diagnoses: Travel History International Travel<30 Days: No Contact w/Intl Traveler <30 Da: No Traveled to Known Affected Are: No History of Present Illness This is a very pleasant 61-year-old female with past medical history of rectal cancer metastatic to liver, DVT on Xarelto 10 mg daily who presented to the ER yesterday with nosebleed and rectal bleeding. The patient is treated at cancer Center in [place]. Normally she does have intermittent rectal bleeding. She states that the amount of bleeding has been normal for her. However yesterday she also developed a nosebleed which frightened her. On the advice of her oncologist she came to the emergency department. Overnight she's had no further nasal bleeding. She did have a small amount of nasal bleeding this morning which resolved with pinching. Patient has known thrombocytopenia secondary to splenomegaly. She has undergone chemoembolization to the liver metastasis and initially they resolved. However in her latest PET scan they had returned. Her DVT was about one year ago. She is due to follow-up with the cancer center in 2 weeks. Overnight her hemoglobin has been stable. Her Xarelto was held. She has been seen by oncology and gastroenterology. Symptoms moderate no palliative or provocative factors. Patient will like to go home today. Review of Systems Constitutional: DENIES: Fever, Chills Eyes: DENIES: Blurred vision, Diplopia Ears, nose, mouth, throat: DENIES: Throat pain, Odynophagia Respiratory: DENIES: Cough, Shortness of breath Cardiovascular: DENIES: Chest pain, Palpitations Gastrointestinal: COMPLAINS OF: Bloody stools, DENIES: Abdominal pain Genitourinary: DENIES: Urgency, Dysuria Musculoskeletal: DENIES: Back pain, Neck pain Integumentary: DENIES: Rash, Breast masses Hematologic/lymphatic: DENIES: Bruising, Lymphadenopathy Neurologic: DENIES: Abnormal gait, Headache Psychiatric: DENIES: Anxiety, Confusion Past Family Social History Past Medical History Rectal cancer with metastasis to liver Intermittent rectal bleeding Thrombocytopenia Reported Medications Allergies Coded Allergies Type Severity Reaction Last Updated Verified No Known Allergies Allergy Unknown 03/17/17 Yes Active Scripts Medications Dose Route/Sig Max Daily Dose Days Date Category Nasacort Allergy 24Hr Nasal [place] (Triamcinolone Acetonide Nasal [place]) 55 Mcg Spr 55 Mcg EACH NARE DAILY 03/17/17 Reported Co Q 10 (Coenzyme Q10 (Ubidecarenone)) 100 Mg-5 Unit Cap 100 Mg PO DAILY 03/17/17 Reported Bertha Allergy (Fexofenadine HCl) 60 Mg Tab 60 Mg PO DAILY 03/17/17 Reported Lomotil (Diphenoxylate-Atropine) 2.5-0.025 Mg Tab 1 Tab PO Q6H PRN 08/07/16 Rx Pantoprazole (Pantoprazole Sodium) 40 Mg Tab 40 Mg PO DAILY 08/07/16 Reported Celexa (Citalopram Hydrobromide) 10 Mg Tab 10 Mg PO DAILY 08/07/16 Reported Percocet (Oxycodone-Acetaminophen) 5-325 mg Tab 1 Tab PO Q4-6H PRN 03/29/16 Reported Zofran (Ondansetron HCl) 4 Mg Tab 4 Mg PO Q8HR PRN 03/29/16 Reported Anucort-Hc (Hydrocortisone Acetate (Rectal) 25 Mg Sup 1 Supp RECTAL BID PRN 03/29/16 Reported Calcium (Calcium Carbonate) 600 Mg Tab 600 Mg PO DAILY 03/29/16 Reported Vitamin D3 (Cholecalciferol) 2,000 Unit Cap 2,000 Units PO DAILY 03/29/16 Reported Probiotic (Lactobacillus Acidophilus) 1 Cap Cap 1 Cap PO DAILY 03/29/16 Reported Levsin-SL (Hyoscyamine Sulfate) 0.125 Mg Subl 0.125 Mg SL TID 03/29/16 Reported Allergies: Coded Allergies: No Known Allergies (Verified Allergy, Unknown, 03/17/17) Family History Negative for cancer Social History No history of alcohol tobacco or drug use Physical Exam Vital Signs Vital Signs Date Time Temp Pulse Resp B/P (MAP) Pulse Ox O2 Delivery O2 Flow Rate FiO2 03/18/17 04:00 96.3 73 18 128/69 (88) 98 03/18/17 00:00 97.7 79 20 105/68 (80) 97 03/17/17 20:00 96.9 84 20 100/66 (77) 100 03/17/17 16:00 96.7 76 16 109/73 (85) 100 03/17/17 15:00 96.6 77 16 116/81 (93) 95 03/17/17 14:56 96.6 77 16 116/81 (93) 95 03/17/17 14:35 03/17/17 13:55 98.1 75 15 116/77 (90) 98 Room Air 03/17/17 12:40 78 17 106/74 (85) 98 Room Air 03/17/17 11:23 97.9 96 18 121/69 (86) 100 Physical Exam GENERAL: Well-nourished, well-developed pleasant female patient. SKIN: Warm and dry. HEAD: Normocephalic. EYES: No scleral icterus. No injection or drainage. NECK: Supple, trachea midline. No JVD or lymphadenopathy. CARDIOVASCULAR: Regular rate and rhythm without murmurs, gallops, or rubs. RESPIRATORY: Breath sounds equal bilaterally. No accessory muscle use. GASTROINTESTINAL: Abdomen soft, non-tender, nondistended. EXTREMITIES: No cyanosis, or edema. NEUROLOGICAL: Awake, alert, and oriented x 3. Non-focal. Laboratory Laboratory Tests Test 03/17/17 11:55 03/18/17 06:30 White Blood Count 3.2 3.0 Red Blood Count 3.77 3.59 Hemoglobin 12.3 11.6 Hematocrit 37.2 35.4 Mean Corpuscular Volume 98.7 98.7 Mean Corpuscular Hemoglobin 32.6 32.3 Mean Corpuscular Hemoglobin Concent 33.0 32.7 Red Cell Distribution Width 16.5 16.1 Platelet Count 63 64 Mean Platelet Volume 8.3 8.3 Neutrophils (%) (Auto) 86.9 75.1 Lymphocytes (%) (Auto) 10.0 17.8 Monocytes (%) (Auto) 1.0 2.5 Eosinophils (%) (Auto) 1.5 4.4 Basophils (%) (Auto) 0.6 0.2 Neutrophils # (Auto) 2.9 2.3 Lymphocytes # (Auto) 0.3 0.5 Monocytes # (Auto) 0.0 0.1 Eosinophils # (Auto) 0.0 0.1 Basophils # (Auto) 0.0 0.0 CBC Comment AUTO DIFF AUTO DIFF Differential Comment AUTO DIFF CONFIRMED AUTO DIFF CONFIRMED Prothrombin Time 11.6 Prothromb Time International Ratio 1.0 Activated Partial Thromboplast Time 25.2 Blood Urea Nitrogen 19 14 Creatinine 0.74 0.54 Random Glucose 133 87 Calcium Level 9.2 9.7 Sodium Level 137 140 Potassium Level 3.5 3.9 Chloride Level 105 106 Carbon Dioxide Level 20.6 25.3 Anion Gap 11 9 Estimat Glomerular Filtration Rate 79 114 Platelet Estimate LOW Platelet Morphology Comment NORMAL Total Protein 6.7 Albumin 2.8 Alkaline Phosphatase 189 Aspartate Amino Transf (AST/SGOT) 60 Alanine Aminotransferase (ALT/SGPT) 78 Total Bilirubin 1.0 Result Diagram: 03/18/1762903/18/17629 Caprini VTE Risk Assessment Caprini VTE Risk Assessment: Mod/High Risk (score >= 2) Caprini Risk Assessment Model Point Value = 1 Point Value = 2 Point Value = 3 Point Value = 5 Age 41-60 Minor surgery BMI > 25 kg/m2 Swollen legs Varicose veins or History of unexplained or recurrent spontaneous Oral contraceptives or hormone replacement Sepsis (< 1 month) Serious lung disease, including pneumonia (< 1 month) Abnormal pulmonary function Acute myocardial infarction Congestive heart failure (< 1 month) History of inflammatory bowel disease Medical patient at bed rest Age 61-74 Arthroscopic surgery Major open surgery (> 45 min) Laparoscopic surgery (> 45 min) Malignancy Confined to bed (> 72 hours) Immobilizing plaster cast Central venous access Age >= 75 History of VTE Family history of VTE Factor V Leiden Prothrombin [id number] Lupus anticoagulant Anticardiolipin antibodies Elevated serum homocysteine Heparin-induced thrombocytopenia Other congenital or acquired thrombophilia Stroke (< 1 month) Elective arthroplasty Hip, pelvis, or leg fracture Acute spinal cord injury (< 1 month) Prophylaxis Regimen Total Risk Factor Score Risk Level Prophylaxis Regimen 0-1 Low Early ambulation 2 Moderate Order ONE of the following: *Sequential Compression Device (SCD) *Heparin 5000 units SQ BID 3-4 Higher Order ONE of the following medications: *Heparin 5000 units SQ TID *Enoxaparin/Lovenox 40 mg SQ daily (WT < 150 kg, CrCl > 30 mL/min) *Enoxaparin/Lovenox 30 mg SQ daily (WT < 150 kg, CrCl > 10-29 mL/min) *Enoxaparin/Lovenox 30 mg SQ BID (WT < 150 kg, CrCl > 30 mL/min) AND/OR *Sequential Compression Device (SCD) 5 or more Highest Order ONE of the following medications: *Heparin 5000 units SQ TID (Preferred with Epidurals) *Enoxaparin/Lovenox 40 mg SQ daily (WT < 150 kg, CrCl > 30 mL/min) *Enoxaparin/Lovenox 30 mg SQ daily (WT < 150 kg, CrCl > 10-29 mL/min) *Enoxaparin/Lovenox 30 mg SQ BID (WT < 150 kg, CrCl > 30 mL/min) AND *Sequential Compression Device (SCD) Assessment and Plan Assessment and Plan - Nosebleed, resolved. Xarelto held. Hemoglobin stable. -Chronic intermittent rectal bleeding in a patient with history of rectal cancer status post radiation. Appreciate hematology opinion. Discussed with Dr. Wick today. Recommend holding Xarelto for now. Patient instructed to call her oncologist in [place] in several days for instructions on when to resume the Xarelto. -Chronic thrombocytopenia. Stable overnight. -Rectal cancer with metastasis to the liver. Follow-up with oncologist in 2 weeks. Patient has been observed overnight with stable hemoglobin. She can be discharged home. Tammy Ayala MD Mar 18, 2017 09:18
[2017-03-18 09:55] LABS: RETIC % 0.1 % (0.4-3.0)
[2017-03-18 10:00] LABS: REVIEW FLAG FINAL
== END 2017-03-18 12:17 | disposition home or self-care (01) ==
LOC: PHED 11:15 → PHEDA 13:47 → PH3A 14:28 → UNDODISOB 14:28 → PH3A 19:38
PROVIDERS: ADMIT Family Medicine; ATTEND Family Medicine
DX: R04.0 Epistaxis (principal); K62.5 Hemorrhage of anus and rectum; C19 Malignant neoplasm of rectosigmoid junction; C78.7 Secondary malignant neoplasm of liver and intrahepatic bile duct; D69.59 Other secondary thrombocytopenia; R16.1 Splenomegaly, not elsewhere classified; K21.9 Gastro-esophageal reflux disease without esophagitis; K58.9 Irritable bowel syndrome, unspecified; F32.9 Major depressive disorder, single episode, unspecified; Z86.718 Personal history of other venous thrombosis and embolism; Z79.01 Long term (current) use of anticoagulants; Z92.3 Personal history of irradiation
CPT/HCPCS: 80048; 80053; 85025; 85044; 85610; 85730; 86850; 86900; 86901; 96360; 96361; 99285; G0378; J1642; J7030

== ENCOUNTER 2017-10-22 10:11 | Emergency (ER) | payer BC ==
[~2017-10-22] VITALS: Ht 157.5 cm; Wt 73.5 kg
[~2017-10-22 10:11] MED LIST changes: -ASCO500C PO; -CLIN1GEL TOPICAL; +CO Q100C9 PO; -COLA100C3 PO; -COQ1100C PO; -FLUT1SPR5 EACH NARE; -LORA-474 PO; -MULT1TAB96 PO; +TRIA1SPR5 EACH NARE; -XARE20TA PO; -XELO500T PO; -[UNRECOGNIZED DRUG - CODE] PO; -[UNRECOGNIZED DRUG - OTHER] PO; -[UNRECOGNIZED DRUG - OTHER] PO; -[UNRECOGNIZED DRUG - OTHER] PO
[2017-10-22 10:19] VITALS: BP 147/86; PULSE 73; RESP 18; TEMP 97.9; O2SAT 99
[2017-10-22] MEDS ORDERED: APIX5TAB PO (10:24)
[2017-10-22] MEDS ORDERED: OXYMETAZOLINE HCL 0.05% 15 ML NASAL SPRAY NASAL ONE (10:30)
[2017-10-22 11:05] LABS: AUTOMATED NEUTROPHIL # 3.2 TH/MM3 (1.8-7.7); BASOPHIL # 0.2 TH/MM3 (0-0.2); BASOPHIL % 3.7 % (0.0-2.0); EOSINOPHIL # 0.3 TH/MM3 (0-0.4); EOSINOPHIL % 5.4 % (0.0-4.0); HEMATOCRIT 38.7 % (35.0-46.0); HEMOGLOBIN 12.4 GM/DL (11.6-15.3); LYMPHOCYTE # 0.7 TH/MM3 (1.0-4.8); MEAN CELL VOLUME 93.5 FL (80.0-100.0); MEAN CORPUSCULAR HEMOGLOBIN 30.1 PG (27.0-34.0); MEAN CORPUSCULAR HGB CONC 32.1 % (32.0-36.0); MEAN PLATELET VOLUME 8.1 FL (7.0-11.0); MONO % 7.4 % (0.0-8.0); MONOCYTE # 0.3 TH/MM3 (0-0.9); NEUT % 69.5 % (16.0-70.0); PLATELET COUNT 97 TH/MM3 (150-450); RED BLOOD COUNT 4.14 MIL/MM3 (4.00-5.30); RED CELL DISTRIBUTION WIDTH 16.6 % (11.6-17.2); WHITE BLOOD COUNT 4.7 TH/MM3 (4.0-11.0)
[2017-10-22 11:53] VITALS: BP 131/72; PULSE 74; RESP 16; O2SAT 100
--- NOTE | 2017-10-22 12:13 | PD ---
HPI Chief Complaint: Nosebleed Time Seen by Provider: 10:23 Travel History International Travel<30 days: No Contact w/Intl Traveler<30days: No Traveled to known affect area: No History of Present Illness HPI This is a 61 year old female who has a history of colon cancer on chemotherapy who is on Eliquis for history of blood clot who presents to the emergency department with 1 hour of bleeding from her nose. She has been bleeding from both sides of her nose and also has been coughing up and spitting up some blood. The symptoms of been constant, moderate severity with no associated lightheadedness or dizziness. She has had nosebleeds in the past. She was changed to Eliquis because of recurrent nosebleeds. 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) Endocrine: No Gastrointestinal Disorders: Yes (IBS, HEMOROIDS) GERD: Yes Genitourinary: No Hepatitis: No Hiatal Hernia: No Immune Disorder: No Musculoskeletal: No Neurologic: No Psychiatric: No Reproductive: No Respiratory: No Immunizations Current: Yes Radiation Therapy: Yes (targeted radiation TO LIVER) Thyroid Disease: No Tetanus Vaccination: < 5 Years Influenza Vaccination: No ?: Not Past Surgical History Abdominal Surgery: No AICD: No Cardiac Surgery: No Ear Surgery: No Endocrine Surgery: No Eye Surgery: No Genitourinary Surgery: No Gynecologic Surgery: No Joint Replacement: No Oral Surgery: No Pacemaker: No Other Surgery: Yes (cancerous polyp removed from anus; colon polyp also) Social History Alcohol Use: No Tobacco Use: No Substance Use: No Allergies-Medications (Allergen,Severity, Reaction): Coded Allergies: No Known Allergies (Verified Allergy, Unknown, 10/22/17) Reported Meds & Prescriptions Reported Meds & Active Scripts Active Lomotil (Diphenoxylate-Atropine) 2.5-0.025 Mg Tab 1 Tab PO Q6H PRN Reported Eliquis (Apixaban) 5 Mg Tab 5 Mg PO BID Nasacort Allergy 24Hr Nasal [place] (Triamcinolone Acetonide Nasal [place]) 55 Mcg Spr 55 Mcg EACH NARE DAILY Co Q 10 (Coenzyme Q10 (Ubidecarenone)) 100 Mg-5 Unit Cap 100 Mg PO DAILY Bertha Allergy (Fexofenadine HCl) 60 Mg Tab 60 Mg PO DAILY Pantoprazole (Pantoprazole Sodium) 40 Mg Tab 40 Mg PO DAILY Celexa (Citalopram Hydrobromide) 10 Mg Tab 10 Mg PO DAILY Percocet (Oxycodone-Acetaminophen) 5-325 mg Tab 1 Tab PO Q4-6H PRN Zofran (Ondansetron HCl) 4 Mg Tab 4 Mg PO Q8HR PRN Anucort-Hc (Hydrocortisone Acetate (Rectal) 25 Mg Sup 1 Supp RECTAL BID PRN Calcium (Calcium Carbonate) 600 Mg Tab 600 Mg PO DAILY Vitamin D3 (Cholecalciferol) 2,000 Unit Cap 2,000 Units PO DAILY Probiotic (Lactobacillus Acidophilus) 1 Cap Cap 1 Cap PO DAILY Levsin-SL (Hyoscyamine Sulfate) 0.125 Mg Subl 0.125 Mg SL TID Review of Systems Except as stated in HPI: all other systems reviewed are Neg Physical Exam Narrative GENERAL: Thin, frail female in no acute distress SKIN: Maceration of the skin and some purulent drainage along the right side of the scalp HEAD: Atraumatic. Normocephalic. EYES: Pupils equal and round. No injection or drainage. ENT: Slow dark blood oozing from both nares NECK: Trachea midline. CARDIOVASCULAR: Regular rate and rhythm. No murmur appreciated. RESPIRATORY: Clear to auscultation. Breath sounds equal bilaterally. GASTROINTESTINAL: Abdomen soft, non-tender, nondistended. MUSCULOSKELETAL: No obvious deformities. NEUROLOGICAL: Awake and alert. No obvious cranial nerve deficits. Moving all extremities. PSYCHIATRIC: Appropriate mood and affect; insight and judgment normal. Data Data Last Documented VS Vital Signs Date Time Temp Pulse Resp B/P (MAP) Pulse Ox O2 Delivery O2 Flow Rate FiO2 10/22/17 11:53 74 16 131/72 (91) 100 Room Air 10/22/17 10:19 97.9 Orders Orders Oxymetazoline 0.05% [place] (Afrin 0.0 (10/22/17 10:30) Complete Blood Count With Diff (10/22/17 10:49) Labs Laboratory Tests Test 10/22/17 10:55 White Blood Count 4.7 TH/MM3 Red Blood Count 4.14 MIL/MM3 Hemoglobin 12.4 GM/DL Hematocrit 38.7 % Mean Corpuscular Volume 93.5 FL Mean Corpuscular Hemoglobin 30.1 PG Mean Corpuscular Hemoglobin Concent 32.1 % Red Cell Distribution Width 16.6 % Platelet Count 97 TH/MM3 Mean Platelet Volume 8.1 FL Neutrophils (%) (Auto) 69.5 % Lymphocytes (%) (Auto) 14.0 % Monocytes (%) (Auto) 7.4 % Eosinophils (%) (Auto) 5.4 % Basophils (%) (Auto) 3.7 % Neutrophils # (Auto) 3.2 TH/MM3 Lymphocytes # (Auto) 0.7 TH/MM3 Monocytes # (Auto) 0.3 TH/MM3 Eosinophils # (Auto) 0.3 TH/MM3 Basophils # (Auto) 0.2 TH/MM3 CBC Comment AUTO DIFF Differential Comment AUTO DIFF CONFIRMED Platelet Estimate LOW Platelet Morphology Comment NORMAL Red Cell Morphology Comment NORMAL MDM Medical Decision Making Medical Screen Exam Complete: Yes Emergency Medical Condition: Yes Interpretation(s) Mild thrombocytopenia Differential Diagnosis Anterior epistaxis, posterior epistaxis, anemia Narrative Course This is a 61-year-old female who presents to the emergency department with a nosebleed. She is hemodynamically stable with some thrombocytopenia not requiring transfusion at this time. Afrin was sprayed in both nares and her bleeding subsided. She was given return instructions. Patient was asked to hold her Eliquis and to discuss with her oncologist when to restart it. She will be discharged home. Diagnosis Primary Impression: Epistaxis Patient Instructions: General Instructions Additional Instructions: If you have another nose bleed: - Sit forward at the waist, don't lie down or tilt your head back. - Pinch the soft area towards the bottom of your nose below the bone. - Squeeze your nose shut for ATLEAST 15 minutes. Use a clock and don't release pressure until time is up. If this fails try again for 30 minutes. If your nose continues to bleed, go to the emergency department. Return to the Emergency department if: You are having difficulty bleeding Your nose bleeds cause you to turn pale, or make you tired or confused If they won't stop after fifteen minutes of constant pressure If you have chest pain, shortness of breath, or other serious symptoms. Call 911 if you are bleeding a lot, have chest pain, or feel woozy. You can help prevent nose bleeds by getting a humidifier in your bedroom. Keeping the inside of your nose moist with bacitracin ointment applied with a cotton swab twice daily. Med/Other Pt SpecificInfo: No Change to Meds Disposition: 01 DISCHARGE HOME Condition: Stable Makeda Morrison MD Oct 22, 2017 12:13
== END 2017-10-22 12:28 | disposition home or self-care (01) ==
LOC: PHED 10:11
DX: R04.0 Epistaxis (principal); D69.6 Thrombocytopenia, unspecified; R04.2 Hemoptysis; K21.9 Gastro-esophageal reflux disease without esophagitis; C18.9 Malignant neoplasm of colon, unspecified; Z79.01 Long term (current) use of anticoagulants; Z86.718 Personal history of other venous thrombosis and embolism; Z87.19 Personal history of other diseases of the digestive system
CPT/HCPCS: 85025; 99283